=== PATIENT | female | born 1965 | race Caucasian/White ===

== ENCOUNTER 2017-01-24 18:30 | Emergency (ER) | payer OTHER ==
--- NOTE | 2017-01-24 20:50 | DIAGNOSTIC IMAGING REPORT ---
PROCEDURE: XR HIP BILATERAL INDICATION: TRAUMA/INJURY TECHNIQUE: AP view of the pelvis and hips with lateral view of each hip. COMPARISON: None. FINDINGS: RIGHT HIP: Normal mineralization. No fracture. Normal bony alignment. Mild acetabular protrusio with diffuse circumferential joint space loss. No unusual adjacent calcifications. LEFT HIP: Normal mineralization. No fracture. Normal bony alignment. Minor acetabular protrusio with slight spurring at the superior acetabular rim and diffuse joint space loss. No unusual adjacent calcifications. PELVIS: Normal mineralization. Pelvic rings are intact. No fractures. Normal alignment. Moderate bilateral sclerotic changes at the sacroiliac joints and mild irregular sclerosis at the pubic symphysis. Partial sacralization of the L5 vertebral body. The visible bowel gas pattern is normal. IMPRESSION: 1. No hip or pelvic fracture. 2. 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
--- NOTE | 2017-01-24 21:08 | ED ORDER SUMMARY ---
..... Patient: MOLLY JORGENSEN OrderSheet [facility] VisitID: [id number] [address] [place] [address] 51y, F Registration Date/Time: 01/24/2017 ORDER SHEET Weight: 83.9 kg (stated) Allergies: PCN GENERAL ORDERS: Knee 4V Bilat Urgent (19:28 01/24/2017 SThom A.R.N.P.) (Ack 19:32 AMcQuoid ER Tech1) (19:40 RMarsden R.N.) Hip Bilat Urgent (19:29 01/24/2017 SThom A.R.N.P.) (Ack 19:32 AMcQuoid ER Tech1) (19:40 RMarsden R.N.) Urine Drug Screen Urgent (21:19 01/24/2017 SThom A.R.N.P.) (Ack 21:21 AMcQuoid ER Tech1) (21:34 RMarsden R.N.) MEDICATION ORDERS: Ketorolac IM 60 mg (NOW) (20:16 01/24/2017 SThom A.R.N.P.) (Ack 20:23 RMarsden R.N.) (20:32 RMarsden R.N.) Oxycodone-APAP PO 5/325 mg (NOW) (20:16 01/24/2017 SThom A.R.N.P.) (Ack 20:23 RMarsden R.N.) (20:32 RMarsden R.N.) IV FLUIDS: ORDER SHEET NOTES: [Electronically signed by Noemí Black R.N. (21:44 01/24/2017)] [Electronically signed by Jennifer Swift.R.N.P. (21:47 01/24/2017)] [Electronically locked/signed by Noemí Black R.N. (21:44 01/24/2017)]
--- NOTE | 2017-01-24 21:08 | ED CLINICAL REPORT ---
Clinical Report - Physicians/Mid Levels [facility] [address] [place] [address] 01/24/2017 18:33 Patient: MOLLY JORGENSEN Time Seen: 19:23. Arrived- By private vehicle. Historian- patient. HISTORY OF PRESENT ILLNESS Location of injuries- right hip and right knee and left knee. Chief Complaint: FALL. The injury occurred today 1130 am. Occurred at work. 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 Fell; slipped. The patient complains of severe pain. No blow to the head or loss of consciousness. REVIEW OF SYSTEMS The patient complains of severe pain on weight bearing. No numbness, difficulty breathing or weakness. PAST HISTORY See nurses notes. prior injury w/ PT to L knee Hx of fibro and back pain-stable on chronic pain rx for that 20 yrs. No history of hypertension or diabetes mellitus. Surgeries: Appendectomy. . Medications: OxyCODONE HCl Oral. Methadone. Allergies: PCN. SOCIAL HISTORY Light tobacco smoker (cigarette)- less than 1/2 a pack per day. Occasional alcohol use. No drug use. ADDITIONAL NOTES The nursing notes have been reviewed. PHYSICAL EXAM Vital Signs: 01/24/2017 18:49 BP: 113/83. HR: 90. RR: 18. O2 saturation: 98%. Temp: 97.8 F. Pain level now: 7/10. Have been reviewed and appear to be correct. Appearance: Alert. Oriented X3. Appears to be in pain. Head: Head non-tender. No swelling of head. Eyes: Pupils equal, round and reactive to light. ENT: No dental injury. Neck: Painless ROM. Respiratory: Chest nontender. Abdomen: No visible injury. Back: Mild tenderness in the lumbar area. Skin: Skin intact. Skin warm and dry. Normal skin color. Normal skin turgor. Extremities: Soft tissue tenderness present in the right hip and right knee and left hip and left knee. Pelvis stable. Right hip: severe tenderness and small abrasion and ecchymosis located in the posterior and lateral aspect of the hip. Limited ROM secondary to pain. Neurovascular intact distally. No erythema, swelling, laceration, puncture wound or foreign body. No deformity. The right leg is not shortened, externally rotated, internally rotated, flexed or adducted. The right leg is not abducted. Left hip: mild tenderness located in the posterior and lateral aspect of the hip. Limited ROM secondary to pain. Neurovascular intact distally. No erythema, swelling, laceration, abrasion or ecchymosis. No puncture wound, foreign body or deformity. The left leg is not shortened, externally rotated, internally rotated, flexed or adducted. The left leg is not abducted. Right knee: moderate tenderness, mild swelling and medium sized ecchymosis located in the patella. Limited ROM secondary to pain. Neurovascular intact distally. No erythema, laceration, abrasion, puncture wound or foreign body. No deformity. Left knee: moderate tenderness, mild swelling and small ecchymosis located in the patella. Limited ROM secondary to pain. Neurovascular intact distally. No erythema, laceration, abrasion, puncture wound or foreign body. No deformity. Neuro: Oriented X 3. No sensory deficit. LABS, X-RAYS, AND EKG X-Rays: (No acute findings on xrays per radiologist. Does have arthritic changes.). Right hip. Right knee negative. Left hip negative. Left knee negative. The X-rays were independently viewed by me, interpreted by the radiologist and discussed with the radiologist. PROGRESS AND PROCEDURES Course of Care: Percocet x1 and toradol 60mg IM Pt is on chronic pain regimen already-no concerns by CAROL-so acute pain rx given. Reiterated no driving since a change from her usual. No fractures or dislocations. Patient is stable. Symptoms better. Patient and family counseled regarding the patient's condition, test results, diagnosis and need for follow-up. Disposition: Discharged. Condition: stable. CLINICAL IMPRESSION Muscle strain of the right hip. Single contusion to the right hip and right knee and left knee. Fall on same level by slipping. Work related injury. INSTRUCTIONS Apply ice. Do not work until released. (Notify your physician of pain med script.). Warnings: CONTROLLED SUBSTANCE WARNINGS: The reason for controlled substance is related to an acute injury. Reviewed the risks and benefits of the medication. Discussed warnings with the patient. GENERAL WARNINGS: Return or contact your physician immediately if your condition worsens or changes unexpectedly, if not improving as expected, or if other problems arise. Your Current Medications: CONTINUE TAKING THE FOLLOWING MEDICATIONS: Methadone*. OxyCODONE HCl Oral. Prescription monitor program consulted. Prescription Medications: Naproxen 500 mg: take 1 orally every 12 hours. Dispense twenty (20). No refills. Oxycodone/APAP 7.5 mg/325 mg: take 1 tablet orally every 8 hours as needed for pain. Dispense twenty (20). No refill. Understanding of the discharge instructions verbalized by patient. Follow-up with: Cliff Gamboa M.D., Occupational Medicine, , [facility], [address] [place] [address] Follow up even if well. Call for the next available appointment. Summary of care provided to patient via paper. (Electronically signed by Jennifer Swift A.R.N.P. 01/24/2017 21:47)
--- NOTE | 2017-01-24 21:08 | ED NURSING NOTES ---
Clinical Report - Nurses [facility] [address] [place] [address] 01/24/2017 18:33 Patient: MOLLY JORGENSEN TRIAGE Triage time 18:50 Jan 24 2017. Acuity: LEVEL 4. Chief Complaint: INJURY TO THE RIGHT HIP, LEFT HIP, RIGHT KNEE and LEFT KNEE. 18:53 01/24/17. 18:53 01/24/17. Alert. No acute distress. 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 SEPSIS SCREEN: Sepsis Screen. Negative (no infection suspected/documented). CHANDNI COMA SCORE: [place] Coma Scale: 15- eyes open spontaneously (4); best verbal response- oriented x 4 (5); best motor response- obeys commands (6). --18:57 Dwain Paez R.N. 18:49 01/24/17. BP: 113/83. HR: 90. RR: 18. O2 saturation: 98% on room air. Temp: 97.8 F (oral). Pain level now: 10. --18:57 Dwain Paez R.N. Weight: 83.9 kg stated. Height/Length: 67 inches Per Patient. BMI: 29. --18:53 Dwain Paez R.N. Medications Methadone. --18:54 Dwain Paez R.N. OxyCODONE HCl Oral. --18:55 Dwain Paez R.N. Medication/allergy information source: the patient. --18:57 Dwain Paez R.N. Allergies PCN. --18:55 Dwain Paez R.N. History Arrived by private vehicle. Historian: patient. Accompanied by family. Primary physician (NONE). 18:53 01/24/17. This occurred today. Occurred at work. ( 1130 this AM). She has had trouble walking. 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 PAST MEDICAL HX: Tetanus status: up-to-date. Immunizations: up-to-date. Last normal menstrual period- 30 of DECEMBER began, ended 06 of January. SOCIAL HX: Current every day light tobacco smoker (cigarette)- less than 1/2 a pack per day. No alcohol use or drug use. No infectious disease exposure. ABUSE ASSESSMENT: No report of abuse. FALL RISK ASSESSMENT: Fall risk assessment completed. No fall risk identified. NUTRITIONAL RISK ASSESSMENT: The nutritional risk assessment revealed no deficiencies. FUNCTIONAL ASSESSMENT: Functional assessment: no impairments noted. LEARNING NEEDS ASSESSMENT: The learning needs assessment revealed no barriers. SKIN INTEGRITY ASSESSMENT: Skin integrity risk assessment completed. No skin integrity risk identified. --18:57 Dwain Paez R.N. PROBLEMS: Fibromyalgia. --18:55 Dwain Paez R.N. Back Pain. --18:55 Dwain Paez R.N. ADDITIONAL SURGERIES: Appendectomy. . --18:55 Dwain Paez R.N. Assessment 18:53 01/24/17. --18:57 Dwain Paez R.N. Interventions 18:53 01/24/17. 18:53 01/24/17. ID and allergy band on patient. To treatment room. --18:57 Dwain Paez R.N. PHYSICAL ASSESSMENT 18:50 01/24/17. Ambulatory to room. GENERAL / NEURO / PSYCH: Oriented X 4. Alert. Appears in pain. EXTREMITIES: Capillary refill is less than 2 seconds in the extremities. Pain with weight bearing. Neuro-vascular status intact to the extremity. Right hip: tenderness. Right knee: tenderness. Left hip: tenderness. Left knee: tenderness. SKIN: Skin is warm and dry. --18:55 Dwain Paez R.N. NURSING PROGRESS NOTES 18:56 01/24/17. The plan of care for this patient has been created. Extremity elevated. Call light placed in reach. Side rails up x 2. Bed placed in lowest position. Brakes of bed on. --18:56 Dwain Paez R.N. Care transferred and report received (from Dwain ADAM). --19:10 Noemí Black R.N. 19:14 01/24/17. Care transferred and report given. --19:14 Dwain Paez R.N. Patient transported to radiology by stretcher. --19:41 Noemí Black R.N. 20:05 01/24/17. Reassurance given. Patient informed about reason for wait and about plan of care. --20:05 Noemí Black R.N. 20:22 01/24/17. BP: 106/67. HR: 67. RR: 18. O2 saturation: 100%. Pain level now: 03/12. --20:23 Noemí Black R.N. Reassurance given. Patient informed about reason for wait and about plan of care. --20:23 Noemí Black R.N. 20:32 01/24/2017 Oxycodone-APAP (Oxycodone-Acetaminophen) PO 5/325 mg Tablets 1 tab given. 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 --20:32 Noemí Black R.N. 20:32 01/24/2017 Ketorolac IM 60 mg given. Given in the right ventral gluteus. Allergies verified and confirmed 5 rights. --20:32 Noemí Black R.N. 21:02 01/24/17. BP: 105/74. HR: 64. RR: 15. O2 saturation: 100%. Temp: deferred. Pain level now: 01/10. --21:03 Noemí Black R.N. 21:35 01/24/2017 Ketorolac IM Response: no adverse reaction pain is improving. The patient feels better. 01/24/2017 21:02 BP: 105/74. HR: 64. RR: 15. O2 saturation: 100%. Pain level now: 01/10. --21:35 Noemí Black R.N. 21:35 01/24/2017 Oxycodone-APAP PO Response: no adverse reaction pain is improving. The patient feels better. 01/24/2017 21:02 BP: 105/74. HR: 64. RR: 15. O2 saturation: 100%. Pain level now: 01/10. --21:35 Noemí Black R.N. DISPOSITION / DISCHARGE 21:35 01/24/17. No learning barriers present. Discharge instructions provided and reviewed with the patient and family. Reviewed warnings. Reviewed medication(s). Treatments reviewed. Reviewed referrals. Activity restrictions reviewed. Work note given. Patient and family verbalized understanding. Written instructions provided in [place]. The patient was discharged home and accompanied by family. She left the Emergency Department ambulatory and via private vehicle. Family member driving. --21:35 Noemí Black R.N. 21:02 01/24/17. BP: 105/74. HR: 64. RR: 15. O2 saturation: 100%. Temp: deferred. Pain level now: 01/10. --21:35 Noemí Black R.N. Departure time: 21:35. --21:35 Noemí Black R.N. Locked/Released at 01/24/2017 21:44 by Noemí Black R.N.
--- NOTE | 2017-01-24 21:08 | ED CLINICAL REPORT ---
Clinical Report - Physicians/Mid Levels [facility] [address] [place] [address] 01/24/2017 18:33 Patient: MOLLY JORGENSEN Time Seen: 19:23. Arrived- By private vehicle. Historian- patient. HISTORY OF PRESENT ILLNESS Location of injuries- right hip and right knee and left knee. Chief Complaint: FALL. The injury occurred today 1130 am. Occurred at work. 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 Fell; slipped. The patient complains of severe pain. No blow to the head or loss of consciousness. REVIEW OF SYSTEMS The patient complains of severe pain on weight bearing. No numbness, difficulty breathing or weakness. PAST HISTORY See nurses notes. prior injury w/ PT to L knee Hx of fibro and back pain-stable on chronic pain rx for that 20 yrs. No history of hypertension or diabetes mellitus. Surgeries: Appendectomy. . Medications: OxyCODONE HCl Oral. Methadone. Allergies: PCN. SOCIAL HISTORY Light tobacco smoker (cigarette)- less than 1/2 a pack per day. Occasional alcohol use. No drug use. ADDITIONAL NOTES The nursing notes have been reviewed. PHYSICAL EXAM Vital Signs: 01/24/2017 18:49 BP: 113/83. HR: 90. RR: 18. O2 saturation: 98%. Temp: 97.8 F. Pain level now: 7/10. Have been reviewed and appear to be correct. Appearance: Alert. Oriented X3. Appears to be in pain. Head: Head non-tender. No swelling of head. Eyes: Pupils equal, round and reactive to light. ENT: No dental injury. Neck: Painless ROM. Respiratory: Chest nontender. Abdomen: No visible injury. Back: Mild tenderness in the lumbar area. Skin: Skin intact. Skin warm and dry. Normal skin color. Normal skin turgor. Extremities: Soft tissue tenderness present in the right hip and right knee and left hip and left knee. Pelvis stable. Right hip: severe tenderness and small abrasion and ecchymosis located in the posterior and lateral aspect of the hip. Limited ROM secondary to pain. Neurovascular intact distally. No erythema, swelling, laceration, puncture wound or foreign body. No deformity. The right leg is not shortened, externally rotated, internally rotated, flexed or adducted. The right leg is not abducted. Left hip: mild tenderness located in the posterior and lateral aspect of the hip. Limited ROM secondary to pain. Neurovascular intact distally. No erythema, swelling, laceration, abrasion or ecchymosis. No puncture wound, foreign body or deformity. The left leg is not shortened, externally rotated, internally rotated, flexed or adducted. The left leg is not abducted. Right knee: moderate tenderness, mild swelling and medium sized ecchymosis located in the patella. Limited ROM secondary to pain. Neurovascular intact distally. No erythema, laceration, abrasion, puncture wound or foreign body. No deformity. Left knee: moderate tenderness, mild swelling and small ecchymosis located in the patella. Limited ROM secondary to pain. Neurovascular intact distally. No erythema, laceration, abrasion, puncture wound or foreign body. No deformity. Neuro: Oriented X 3. No sensory deficit. LABS, X-RAYS, AND EKG X-Rays: (No acute findings on xrays per radiologist. Does have arthritic changes.). Right hip. Right knee negative. Left hip negative. Left knee negative. The X-rays were independently viewed by me, interpreted by the radiologist and discussed with the radiologist. PROGRESS AND PROCEDURES Course of Care: Percocet x1 and toradol 60mg IM Pt is on chronic pain regimen already-no concerns by CAROL-so acute pain rx given. Reiterated no driving since a change from her usual. No fractures or dislocations. Patient is stable. Symptoms better. Patient and family counseled regarding the patient's condition, test results, diagnosis and need for follow-up. Disposition: Discharged. Condition: stable. CLINICAL IMPRESSION Muscle strain of the right hip. Single contusion to the right hip and right knee and left knee. Fall on same level by slipping. Work related injury. INSTRUCTIONS Apply ice. Do not work until released. (Notify your physician of pain med script.). Warnings: CONTROLLED SUBSTANCE WARNINGS: The reason for controlled substance is related to an acute injury. Reviewed the risks and benefits of the medication. Discussed warnings with the patient. GENERAL WARNINGS: Return or contact your physician immediately if your condition worsens or changes unexpectedly, if not improving as expected, or if other problems arise. Your Current Medications: CONTINUE TAKING THE FOLLOWING MEDICATIONS: Methadone*. OxyCODONE HCl Oral. Prescription monitor program consulted. Prescription Medications: Naproxen 500 mg: take 1 orally every 12 hours. Dispense twenty (20). No refills. Oxycodone/APAP 7.5 mg/325 mg: take 1 tablet orally every 8 hours as needed for pain. Dispense twenty (20). No refill. Understanding of the discharge instructions verbalized by patient. Follow-up with: Cliff Gamboa M.D., Occupational Medicine, , [facility], [address] [place] [address] Follow up even if well. Call for the next available appointment. Summary of care provided to patient via paper. (Electronically signed by Jennifer Swift A.R.N.P. 01/24/2017 21:47)
--- NOTE | 2017-01-24 21:08 | ED ORDER SUMMARY ---
..... Patient: MOLLY JORGENSEN OrderSheet [facility] VisitID: [id number] [address] [place] [address] 51y, F Registration Date/Time: 01/24/2017 ORDER SHEET Weight: 83.9 kg (stated) Allergies: PCN GENERAL ORDERS: Knee 4V Bilat Urgent (19:28 01/24/2017 SThom A.R.N.P.) (Ack 19:32 AMcQuoid ER Tech1) (19:40 RMarsden R.N.) Hip Bilat Urgent (19:29 01/24/2017 SThom A.R.N.P.) (Ack 19:32 AMcQuoid ER Tech1) (19:40 RMarsden R.N.) Urine Drug Screen Urgent (21:19 01/24/2017 SThom A.R.N.P.) (Ack 21:21 AMcQuoid ER Tech1) (21:34 RMarsden R.N.) MEDICATION ORDERS: Ketorolac IM 60 mg (NOW) (20:16 01/24/2017 SThom A.R.N.P.) (Ack 20:23 RMarsden R.N.) (20:32 RMarsden R.N.) Oxycodone-APAP PO 5/325 mg (NOW) (20:16 01/24/2017 SThom A.R.N.P.) (Ack 20:23 RMarsden R.N.) (20:32 RMarsden R.N.) IV FLUIDS: ORDER SHEET NOTES: [Electronically signed by Noemí Black R.N. (21:44 01/24/2017)] [Electronically signed by Jennifer Swift.R.N.P. (21:47 01/24/2017)] [Electronically locked/signed by Noemí Black R.N. (21:44 01/24/2017)]
--- NOTE | 2017-01-24 21:08 | ED NURSING NOTES ---
Clinical Report - Nurses [facility] [address] [place] [address] 01/24/2017 18:33 Patient: MOLLY JORGENSEN TRIAGE Triage time 18:50 Jan 24 2017. Acuity: LEVEL 4. Chief Complaint: INJURY TO THE RIGHT HIP, LEFT HIP, RIGHT KNEE and LEFT KNEE. 18:53 01/24/17. 18:53 01/24/17. Alert. No acute distress. 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 SEPSIS SCREEN: Sepsis Screen. Negative (no infection suspected/documented). CHANDNI COMA SCORE: Johnson Coma Scale: 15- eyes open spontaneously (4); best verbal response- oriented x 4 (5); best motor response- obeys commands (6). --18:57 Dwain Paez R.N. 18:49 01/24/17. BP: 113/83. HR: 90. RR: 18. O2 saturation: 98% on room air. Temp: 97.8 F (oral). Pain level now: 10. --18:57 Dwain Paez R.N. Weight: 83.9 kg stated. Height/Length: 67 inches Per Patient. BMI: 29. --18:53 Dwain Paez R.N. Medications Methadone. --18:54 Dwain Paez R.N. OxyCODONE HCl Oral. --18:55 Dwain Paez R.N. Medication/allergy information source: the patient. --18:57 Dwain Paez R.N. Allergies PCN. --18:55 Dwain Paez R.N. History Arrived by private vehicle. Historian: patient. Accompanied by family. Primary physician (NONE). 18:53 01/24/17. This occurred today. Occurred at work. ( 1130 this AM). She has had trouble walking. 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 PAST MEDICAL HX: Tetanus status: up-to-date. Immunizations: up-to-date. Last normal menstrual period- 30 of DECEMBER began, ended 06 of January. SOCIAL HX: Current every day light tobacco smoker (cigarette)- less than 1/2 a pack per day. No alcohol use or drug use. No infectious disease exposure. ABUSE ASSESSMENT: No report of abuse. FALL RISK ASSESSMENT: Fall risk assessment completed. No fall risk identified. NUTRITIONAL RISK ASSESSMENT: The nutritional risk assessment revealed no deficiencies. FUNCTIONAL ASSESSMENT: Functional assessment: no impairments noted. LEARNING NEEDS ASSESSMENT: The learning needs assessment revealed no barriers. SKIN INTEGRITY ASSESSMENT: Skin integrity risk assessment completed. No skin integrity risk identified. --18:57 Dwain Paez R.N. PROBLEMS: Fibromyalgia. --18:55 Dwain Paez R.N. Back Pain. --18:55 Dwain Paez R.N. ADDITIONAL SURGERIES: Appendectomy. . --18:55 Dwain Paez R.N. Assessment 18:53 01/24/17. --18:57 Dwain Paez R.N. Interventions 18:53 01/24/17. 18:53 01/24/17. ID and allergy band on patient. To treatment room. --18:57 Dwain Paez R.N. PHYSICAL ASSESSMENT 18:50 01/24/17. Ambulatory to room. GENERAL / NEURO / PSYCH: Oriented X 4. Alert. Appears in pain. EXTREMITIES: Capillary refill is less than 2 seconds in the extremities. Pain with weight bearing. Neuro-vascular status intact to the extremity. Right hip: tenderness. Right knee: tenderness. Left hip: tenderness. Left knee: tenderness. SKIN: Skin is warm and dry. --18:55 Dwain Paez R.N. NURSING PROGRESS NOTES 18:56 01/24/17. The plan of care for this patient has been created. Extremity elevated. Call light placed in reach. Side rails up x 2. Bed placed in lowest position. Brakes of bed on. --18:56 Dwain Paez R.N. Care transferred and report received (from Dwain ADAM). --19:10 Noemí Black R.N. 19:14 01/24/17. Care transferred and report given. --19:14 Dwain Paez R.N. Patient transported to radiology by stretcher. --19:41 Noemí Black R.N. 20:05 01/24/17. Reassurance given. Patient informed about reason for wait and about plan of care. --20:05 Noemí Black R.N. 20:22 01/24/17. BP: 106/67. HR: 67. RR: 18. O2 saturation: 100%. Pain level now: 03/12. --20:23 Noemí Black R.N. Reassurance given. Patient informed about reason for wait and about plan of care. --20:23 Noemí Black R.N. 20:32 01/24/2017 Oxycodone-APAP (Oxycodone-Acetaminophen) PO 5/325 mg Tablets 1 tab given. 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 --20:32 Noemí Black R.N. 20:32 01/24/2017 Ketorolac IM 60 mg given. Given in the right ventral gluteus. Allergies verified and confirmed 5 rights. --20:32 Noemí Black R.N. 21:02 01/24/17. BP: 105/74. HR: 64. RR: 15. O2 saturation: 100%. Temp: deferred. Pain level now: 01/10. --21:03 Noemí Black R.N. 21:35 01/24/2017 Ketorolac IM Response: no adverse reaction pain is improving. The patient feels better. 01/24/2017 21:02 BP: 105/74. HR: 64. RR: 15. O2 saturation: 100%. Pain level now: 01/10. --21:35 Noemí Black R.N. 21:35 01/24/2017 Oxycodone-APAP PO Response: no adverse reaction pain is improving. The patient feels better. 01/24/2017 21:02 BP: 105/74. HR: 64. RR: 15. O2 saturation: 100%. Pain level now: 01/10. --21:35 Noemí Black R.N. DISPOSITION / DISCHARGE 21:35 01/24/17. No learning barriers present. Discharge instructions provided and reviewed with the patient and family. Reviewed warnings. Reviewed medication(s). Treatments reviewed. Reviewed referrals. Activity restrictions reviewed. Work note given. Patient and family verbalized understanding. Written instructions provided in Ukrainian. The patient was discharged home and accompanied by family. She left the Emergency Department ambulatory and via private vehicle. Family member driving. --21:35 Noemí Black R.N. 21:02 01/24/17. BP: 105/74. HR: 64. RR: 15. O2 saturation: 100%. Temp: deferred. Pain level now: 01/10. --21:35 Noemí Black R.N. Departure time: 21:35. --21:35 Noemí Black R.N. Locked/Released at 01/24/2017 21:44 by Noemí Black R.N.
--- NOTE | 2017-01-24 21:11 | DIAGNOSTIC IMAGING REPORT ---
PROCEDURE: XR KNEE 4 VIEWS BILATERAL INDICATION: TRAUMA/INJURY TECHNIQUE: Four views of each knee. COMPARISON: None. FINDINGS: Right knee: Normal mineralization. No fractures. Normal osseous alignment. Mild medial compartment joint space loss and trace spurring. No joint effusion. No suspicious soft-tissue calcification or radiodense foreign bodies. Left knee: Normal mineralization. No fractures. Normal osseous alignment. Minor medial compartment joint space loss. No joint effusion. No suspicious soft-tissue calcification or radiodense foreign bodies. IMPRESSION: 1. Intact bilateral knees.
--- NOTE | 2017-01-24 21:47 | ED DISCHARGE INSTRUCTIONS ---
Patient: MOLLY JORGENSEN General Instructions [facility] VisitID: [id number] [address] [place] [address] 51y, F Registration Date/Time: 01/24/2017 Muscle strain of the right hip. Single contusion to the right hip and right knee and left knee. Fall on same level by slipping. Work related injury. INSTRUCTIONS Apply ice. Do not work until released. (Notify your physician of pain med script.). Warnings: CONTROLLED SUBSTANCE WARNINGS: The reason for controlled substance is related to an acute injury. Reviewed the risks and benefits of the medication. Discussed warnings with the patient. GENERAL WARNINGS: Return or contact your physician immediately if your condition worsens or changes unexpectedly, if not improving as expected, or if other problems arise. Your Current Medications: CONTINUE TAKING THE FOLLOWING MEDICATIONS: Methadone*. OxyCODONE HCl Oral. Prescription monitor program consulted. Prescription Medications: Naproxen 500 mg: take 1 orally every 12 hours. Dispense twenty (20). No refills. Oxycodone/APAP 7.5 mg/325 mg: take 1 tablet orally every 8 hours as needed for pain. Dispense twenty (20). No refill. Understanding of the discharge instructions verbalized by patient. Follow-up with: Cliff Gamboa M.D., Occupational Medicine, , [facility], [address] [place] [address], [facility] Follow up even if well. Call for the next available appointment. Summary of care provided to patient via paper. ADDITIONAL INFORMATION Mechanical Fall You have had a fall today. It appears that the cause is mechanical. That means that you slipped, tripped or lost your balance. If your fall had been due to fainting or a seizure, further tests would be required. Home Care: Rest today and resume your normal activities when you are feeling back to normal. If you were injured during the fall, follow the advice from your doctor regarding care of your injury. You may use acetaminophen (Tylenol) or ibuprofen (Motrin, Advil) to control pain, unless another pain medicine was prescribed. [NOTE: If you have chronic liver or kidney disease or ever had a stomach ulcer or GI bleeding, talk with your doctor before using these medicines.] Fall Prevention: Was there anything that caused your fall that can be fixed, removed, or replaced? Make your home safe by keeping walkways clear of objects you may trip over. Use non-slip pads under rugs. Do not walk in poorly lit areas. Do not stand on chairs or wobbly ladders. Use caution when reaching overhead or looking upward. This position can cause a loss of balance. Be sure your shoes fit properly, have non-slip bottoms and are in good condition. Be cautious when going up and down curbs, and walking on uneven sidewalks. If your balance is poor, consider using a cane or walker. Stay as active as you can. Balance, flexibility, strength, and endurance all come from exercise. They all play a role in preventing falls. Follow Up with your doctor or as advised by our staff. Get Prompt Medical Attention if any of the following occur: Repeated mechanical falls, or unexplained falls Dizziness, fainting or seizure Severe headache Chest pain or shortness of breath Palpitations (very rapid or very slow or irregular heartbeat) Blood in vomit, stools (black or red color) Weakness of an arm or leg or one side of the face Difficulty with speech or vision Muscle Strain,Extremity A MUSCLE STRAIN is a stretching and tearing of muscle fibers. This causes pain, especially with motion of that muscle. There may also be some swelling and bruising. Home Care: 1) Keep the injured area raised to reduce pain and swelling. This is especially important during the first 48 hours. 2) Make an ice pack (ice cubes in a plastic bag, wrapped in a towel) and apply for 20 minutes every 1-2 hours the first day. You should continue with ice packs 3-4 times a day for the second and third days. Unless otherwise instructed, on the fourth day you may begin hot soaks or hot packs (small towel soaked in hot water) 3-4 times a day while you gently exercise the involved area. 3) You may use acetaminophen (Tylenol) or ibuprofen (Motrin, Advil) to control pain, unless another medicine was prescribed. [ NOTE : If you have chronic liver or kidney disease or ever had a stomach ulcer or GI bleeding, talk with your doctor before using these medicines.] 4) For LEG STRAINS: If CRUTCHES have been recommended, do not bear full weight on the injured leg until you can do so without pain. You may return to sports when you are able to hop and run on the injured leg without pain. Follow Up with your doctor or this facility if you are not improving within the next five days. Get Prompt Medical Attention if any of the following occur: -- Fingers or toes become swollen, cold, blue, numb or tingly -- Pain or swelling increases Contusion:Lower Extremity You have a CONTUSION of your LOWER extremity (leg, knee, ankle, foot, or toes). This causes local pain, swelling and sometimes bruising. There are no broken bones. This injury may take from a few days to a few weeks to heal. Home Care: 1) Keep your leg elevated to reduce pain and swelling. When sleeping, place a pillow under the injured leg. When sitting, support the injured leg so it is level with your waist. This is very important during the first 48 hours. 2) If CRUTCHES have been advised, do not bear full weight on the injured leg until you can do so without pain. You may return to sports when you are able to hop and run on the injured leg without pain. 3) Apply an ice pack (ice cubes in a plastic bag, wrapped in a towel) over the injured area for 20 minutes every 1-2 hours the first day for pain relief. Continue this 3-4 times a day until the pain and swelling goes away. 4) You may use acetaminophen (Tylenol) or ibuprofen (Motrin, Advil) to control pain, unless another pain medicine was prescribed. [ NOTE : If you have chronic liver or kidney disease or ever had a stomach ulcer or GI bleeding, talk with your doctor before using these medicines.] Follow Up with your doctor or this facility if you are not starting to improve within the next THREE days. [NOTE: If X-rays were taken, they will be reviewed by a radiologist. You will be notified of any new findings that may affect your care.] Get Prompt Medical Attention if any of the following occur: -- Pain or swelling increases -- Toes become cold, blue, numb or tingly -- Redness, warmth or drainage from the skin You have been given the following additional information: Fall, Mechanical Muscle Strain, Extremity Contusion, Lower Extremity Do not work until released. (Electronically signed by Jennifer Swift A.R.NOdell 01/24/2017 21:47)
--- NOTE | 2017-01-24 21:47 | ED MED RECONCILIATION SUMMARY ---
Patient: MOLLY JORGENSEN Medication Reconciliation Report [facility] VisitID: [id number] [address] [place] [address] 51y, F Registration Date/Time: 01/24/2017 Weight: 83.9 kg Height/Length: 67 in. BMI: 29.0 ALLERGIES: PCN The patient's Home Medications are listed below: CONTINUE TAKING THE FOLLOWING MEDICATIONS: Methadone OxyCODONE HCl Oral The source(s) of the original Home Medication information: patient The following Medications were given to the patient in the Emergency Department: Oxycodone-APAP [PO] PO 1 tab, administered: 01/24/2017 8:32:00 PM Ketorolac [IM] IM 60 mg, administered: 01/24/2017 8:32:00 PM The following Medications were prescribed to the patient: Naproxen 500 mg: take 1 orally every 12 hours. Dispense twenty (20). No refills. -- Jennifer Swift A.R.N.P. Oxycodone/APAP 7.5 mg/325 mg: take 1 tablet orally every 8 hours as needed for pain. Dispense twenty (20). No refill. -- Jennifer Swift A.R.N.P.
--- NOTE | 2017-01-24 21:47 | ED MAR SUMMARY ---
..... Medication Administration Record [facility] [address] [place] [address] Patient: MOLLY JORGENSEN Visit ID: [id number] 51y, F Weight: 83.9 kg Height/Length: 67 in BMI: 29 ALLERGIES: PCN Given 20:32 01/24/2017 Noemí Black, REviNEvi Medication Administered: KETOROLAC [IM], Dose: 60 mg IM. Medication Ordered: Ketorolac IM 60 mg (NOW). Given 20:32 01/24/2017 Noemí Black, R.N. Medication Administered: OXYCODONE-APAP [PO] (OXYCODONE-ACETAMINOPHEN), Dose: 1 tab 5/325 mg Tablets PO. Medication Ordered: Oxycodone-APAP PO 5/325 mg (NOW).
--- NOTE | 2017-01-24 21:47 | ED MAR SUMMARY ---
..... Medication Administration Record [facility] [address] [place] [address] Patient: MOLLY JORGENSEN Visit ID: [id number] 51y, F Weight: 83.9 kg Height/Length: 67 in BMI: 29 ALLERGIES: PCN Given 20:32 01/24/2017 Noemí Black, REviNEvi Medication Administered: KETOROLAC [IM], Dose: 60 mg IM. Medication Ordered: Ketorolac IM 60 mg (NOW). Given 20:32 01/24/2017 Noemí Black, R.N. Medication Administered: OXYCODONE-APAP [PO] (OXYCODONE-ACETAMINOPHEN), Dose: 1 tab 5/325 mg Tablets PO. Medication Ordered: Oxycodone-APAP PO 5/325 mg (NOW).
--- NOTE | 2017-01-24 21:47 | ED MED RECONCILIATION SUMMARY ---
Patient: MOLLY JORGENSEN Medication Reconciliation Report [facility] VisitID: [id number] [address] [place] [address] 51y, F Registration Date/Time: 01/24/2017 Weight: 83.9 kg Height/Length: 67 in. BMI: 29.0 ALLERGIES: PCN The patient's Home Medications are listed below: CONTINUE TAKING THE FOLLOWING MEDICATIONS: Methadone OxyCODONE HCl Oral The source(s) of the original Home Medication information: patient The following Medications were given to the patient in the Emergency Department: Oxycodone-APAP [PO] PO 1 tab, administered: 01/24/2017 8:32:00 PM Ketorolac [IM] IM 60 mg, administered: 01/24/2017 8:32:00 PM The following Medications were prescribed to the patient: Naproxen 500 mg: take 1 orally every 12 hours. Dispense twenty (20). No refills. -- Jennifer Swift A.R.N.P. Oxycodone/APAP 7.5 mg/325 mg: take 1 tablet orally every 8 hours as needed for pain. Dispense twenty (20). No refill. -- Jennifer Swift A.R.N.P.
== END 2017-01-24 21:35 | disposition home or self-care (01) ==
LOC: ED SRH 18:30
DX: S76.011A Strain of muscle, fascia and tendon of right hip, initial encounter (principal); S80.01XA Contusion of right knee, initial encounter; S80.02XA Contusion of left knee, initial encounter; S70.01XA Contusion of right hip, initial encounter; W01.0XXA Fall on same level from slipping, tripping and stumbling without subsequent striking against object, initial encounter; Y93.89 Activity, other specified; Y92.89 Other specified places as the place of occurrence of the external cause; Y99.0 Civilian activity done for income or pay; Z88.0 Allergy status to penicillin; F17.210 Nicotine dependence, cigarettes, uncomplicated
CPT/HCPCS: 92760; 92761; 92762; 92763; 92764; 92765; 92766; 92767